=== PATIENT | male | born 1990 ===

== ENCOUNTER 2018-05-21 12:51 | Emergency (ER) | payer OTHER, SELFPAY ==
[2018-05-21 12:57] VITALS: BP 123/77; PULSE 77; RESP 14; TEMP 36.8; O2SAT 97; BMI 38.4
--- NOTE | 2018-05-21 13:48 | ED.EXTPRO ---
HPI - Extremity Problem <Nanette Carmichael PA-C - Last Filed: 05/21/18 19:41> General Chief complaint: Extremity Problem,Nontraumatic Stated complaint: RT FOOT PAIN Time Seen by Provider: 05/21/18 13:47 Source: patient Mode of arrival: ambulatory Limitations: no limitations History of Present Illness HPI Narrative: This 27-year-old male comes in due to recurrences of right great toe pain for the last several years. He states that he has had a flare up every few months. He states that he has numerous extended family members who have gout and have told him that his symptoms are the same, no immediate family members. He states that he gets pain and swelling in that toe and on that side of the foot. He gets somewhat red. It gets painful to walk on and he has to walk on the side of his foot or the heel. It is typically been limited to his great toe. He has not noted pain or swelling in other joints. He has not had any fever or other new symptoms with this and has been otherwise well. He states he has tried to get into medical when this occurs, however it always takes at least several days and the symptoms are resolving by than. He states they are always largely resolved within a week or less. He had recurrent symptoms that started again yesterday, worse pain this morning. He did take Tylenol which has helped somewhat. He has no chronic medical problems, has had no surgeries. Related Data Previous Rx's Medication Instructions Recorded naproxen 500 mg PO Q12H PRN #30 tab 05/21/18 Allergies Allergy/AdvReac Type Severity Reaction Status Date / Time No Known Drug Allergies Allergy Verified 05/21/18 12:59 Review of Systems <Nanette Carmichael PA-C - Last Filed: 05/21/18 19:41> Review of Systems ROS Unobtainable: All systems reviewed & are unremarkable except as noted in HPI and below PFSH <Nanette Carmichael PA-C - Last Filed: 05/21/18 19:41> Medical History Healthy adult male (Chronic) Social History Smoking Status: Former smoker Social History Smoking Status: Former smoker Exam <Nanette Carimchael PA-C - Last Filed: 05/21/18 19:41> Narrative Exam Narrative: GENERAL APPEARANCE: Patient sitting comfortably, in no distress. LUNGS: Clear to auscultation bilaterally. HEART: Rate and rhythm regular without murmur, normal S1 and S2, no S3 or S4. DERMATOLOGIC: Right great toe to 1st metatarsal base there is mild erythema with warmth to touch, no skin breaks or wounds visible MUSCULOSKELETAL: right great toe mild effusion, tender to touch at the joint, no tenderness over the other toes or metatarsals. No tenderness over the ankle. Full range of motion. No left foot effusion NEUROVASCULAR: Right foot is warm and pink, +pedal pulses, sensation grossly intact Initial Vital Signs Initial Vital Signs: Vital Signs Temperature 98.2 F 05/21/18 12:57 Pulse Rate 77 05/21/18 12:57 Respiratory Rate 14 05/21/18 12:57 Blood Pressure 123/77 05/21/18 12:57 Pulse Oximetry 97 05/21/18 12:57 <Adele Sterling DO - Last Filed: 05/23/18 07:26> Initial Vital Signs Initial Vital Signs: Vital Signs Temperature 98.2 F 05/21/18 12:57 Pulse Rate 77 05/21/18 12:57 Respiratory Rate 14 05/21/18 12:57 Blood Pressure 123/77 05/21/18 12:57 Pulse Oximetry 97 05/21/18 12:57 Course <Nanette Carmichael PA-C - Last Filed: 05/21/18 19:41> Additional Information: The recurrent symptoms are consistent with gout. I did offer patient trial of NSAIDs and outpatient follow-up. He preferred to do a little bit of workup here as he has had difficulty getting in for appointments when symptomatic. Reviewed no acute findings on studies, which certainly is also consistent with gout. Advised to continue anti-inflammatory and follow-up with PCM on this to discuss prophylactic medication since he has frequent flares. Orders Ordered: Discontinued Medications Naproxen (Naprosyn) 500 mg PO NOW ONE Stop: 05/21/18 14:38 Last Admin: 05/21/18 14:47 Dose: 500 mg Vital Signs - 8 hr 05/21/18 12:57 Temperature 98.2 F Pulse Rate 77 Respiratory Rate 14 Blood Pressure 123/77 Pulse Oximetry 97 <Adele Sterling DO - Last Filed: 05/23/18 07:26> Orders Ordered: Discontinued Medications Naproxen (Naprosyn) 500 mg PO NOW ONE Stop: 05/21/18 14:38 Last Admin: 05/21/18 14:47 Dose: 500 mg Vital Signs - 8 hr 05/21/18 12:57 Temperature 98.2 F Pulse Rate 77 Respiratory Rate 14 Blood Pressure 123/77 Pulse Oximetry 97 MDM - Extremity (Nontraumatic) <Nanette Carmichael PA-C - Last Filed: 05/21/18 19:41> Lab Data Result diagrams: 05/21/18 14:49 05/21/18 14:49 Lab Results 05/21/18 05/21/18 Range/Units 14:49 14:49 WBC 8.5 (4.5-11.0) X10^3/uL RBC 5.09 (4.5-5.9) X10^6/uL Hgb 15.8 (13.5-17.5) g/dL Hct 47.0 (41-53) % MCV 92.2 (80-100) fL MCH 31.1 (26-34) PG MCHC 33.7 (30-36) % RDW 12.8 (11.6-14.8) % Plt Count 200 (150-400) X10^3/uL Neut % (Auto) 72.9 (50-75) % Lymph % (Auto) 19.1 L (25-40) % [place] % (Auto) 6.1 (3-14) % Eos % (Auto) 1.5 L (2-4) % Baso % (Auto) 0.4 (0-2) % Neut # (Auto) 6200 (9881-2532) /uL Lymph # (Auto) 1600 (0815-7338) /uL [place] # (Auto) 500 (0-900) /uL Eos # (Auto) 100 (0-450) /uL Baso # (Auto) 0 (0-100) /uL Sodium 138 (137-145) mmol/L Potassium 4.7 (3.4-5.1) mmol/L Chloride 101 (98-107) mmol/L Carbon Dioxide 27 (22-32) mmol/L BUN 13 (9-20) mg/dL Creatinine 0.80 (0.66-1.25) mg/dL Estimated GFR > 60.0 (>60) mL/min BUN/Creatinine Ratio 16.3 (6-22) Glucose 99 (70-100) mg/dL Uric Acid 6.1 (3.5-8.5) mg/dL Calcium 9.5 (8.4-10.2) mg/dL C-Reactive Protein 0.7 (<1.0) mg/dL Imaging Data foot: Radiologist's impression: [address] [address] XRay Report Signed Patient: Kana Cm TMR#: [id number] : 1990Acct:[id number] Age/Sex: te of Service: 05/21/18 Loc: ED Accession Number: [id number] Procedure: XR foot RT min 3V Ordering Provider: Nanette Carmichael P.A-C PROCEDURE: XR FOOT RT MIN 3V INDICATIONS: RIGHT foot/great toe pain TECHNIQUE: 3 views of the foot were acquired. COMPARISON: None. FINDINGS: Bones: No fractures or dislocations. No suspicious bony lesions. Soft tissues: No tibiotalar joint effusion. Achilles tendon appears normal. IMPRESSION: No acute fracture. No osseous lesion. If symptoms and/or clinical suspicion for pathology persist, further assessment with repeat, or advanced imaging (e.g., CT, MRI, or bone scan) may be helpful for further assessment. Dictated by: Yoly Vital M.D. on 05/21/2018 at 14:49 Approved by: Yoly Vital M.D. on 05/21/2018 at 14:50 <Adele Sterling, - Last Filed: 05/23/18 07:26> Lab Data Lab Results 05/21/18 05/21/18 Range/Units 14:49 14:49 WBC 8.5 (4.5-11.0) X10^3/uL RBC 5.09 (4.5-5.9) X10^6/uL Hgb 15.8 (13.5-17.5) g/dL Hct 47.0 (41-53) % MCV 92.2 (80-100) fL MCH 31.1 (26-34) PG MCHC 33.7 (30-36) % RDW 12.8 (11.6-14.8) % Plt Count 200 (150-400) X10^3/uL Neut % (Auto) 72.9 (50-75) % Lymph % (Auto) 19.1 L (25-40) % [place] % (Auto) 6.1 (3-14) % Eos % (Auto) 1.5 L (2-4) % Baso % (Auto) 0.4 (0-2) % Neut # (Auto) 6200 (3402-9357) /uL Lymph # (Auto) 1600 (3930-9028) /uL [place] # (Auto) 500 (0-900) /uL Eos # (Auto) 100 (0-450) /uL Baso # (Auto) 0 (0-100) /uL Sodium 138 (137-145) mmol/L Potassium 4.7 (3.4-5.1) mmol/L Chloride 101 (98-107) mmol/L Carbon Dioxide 27 (22-32) mmol/L BUN 13 (9-20) mg/dL Creatinine 0.80 (0.66-1.25) mg/dL Estimated GFR > 60.0 (>60) mL/min BUN/Creatinine Ratio 16.3 (6-22) Glucose 99 (70-100) mg/dL Uric Acid 6.1 (3.5-8.5) mg/dL Calcium 9.5 (8.4-10.2) mg/dL C-Reactive Protein 0.7 (<1.0) mg/dL Discharge Plan Departure Patient Disposition: Home Clinical Impression: Gout Qualifiers: Gout site: toe Gout etiology: idiopathic Chronicity: unspecified Laterality: right Qualified Code(s): M10.071 - Idiopathic gout, right ankle and foot Discharge Date/Time: 05/21/18 16:00 Interventions: ED Discharge Assessment Last Done: 05/21/18 15:59 Instructions: DI for Gout Activity Restrictions/Additional Instructions: Please return if you have acutely worsening symptoms again. Otherwise, please continue the naproxen to help with pain and inflammation twice daily. You can add Tylenol in addition if needed for pain. Please follow up with medical next week to review your history and frequency of attacks with them and talk about getting on some medicine to prevent attacks. Your x-rays and lab studies did not show any acute problem today, but based on your history and exam findings your recurrent pain is most likely due to gout. Prescriptions: New naproxen 500 mg tablet 500 mg PO Q12H PRN (Reason: pain/gout attack) Qty: 30 RF: 0 Referrals: [facility] [Provider Group] <Adele Sterling DO - Last Filed: 05/23/18 07:26> Cosign ED Attending Cosignature Attestation: I was immediately available in the department for consultation. This documentation has been reviewed and I agree with assessment and plan. Supervised by Adele Sterling DO
--- NOTE | 2018-05-21 14:17 | PC.NURSE ---
Patient reports 10/10 pain of right toe woke this morning took tylenol for pain has had significant relief. No personal dx of Gout but has family members that have had it.
--- NOTE | 2018-05-21 14:37 | DI.RAD.S_ITS ---
PROCEDURE: XR FOOT RT MIN 3V INDICATIONS: RIGHT foot/great toe pain TECHNIQUE: 3 views of the foot were acquired. COMPARISON: None. FINDINGS: Bones: No fractures or dislocations. No suspicious bony lesions. Soft tissues: No tibiotalar joint effusion. Achilles tendon appears normal. IMPRESSION: No acute fracture. No osseous lesion. If symptoms and/or clinical suspicion for pathology persist, further assessment with repeat, or advanced imaging (e.g., CT, MRI, or bone scan) may be helpful for further assessment. Dictated by: Yoly Vital M.D. on 05/21/2018 at 14:49 Approved by: Yoly Vital M.D. on 05/21/2018 at 14:50
[2018-05-21] MEDS: NAPROXEN 250 MG TABLET 500 MG PO (14:47)
[2018-05-21 15:05] LABS: Add Manual Diff / Slide Review NO; Basophils Absolute Auto 0 /uL (0-100); Basophils Percent Auto 0.4 % (0-2); Eosinophils Absolute Auto 100 /uL (0-450); Eosinophils Percent Auto 1.5 % (2-4); Hemoglobin 15.8 g/dL (13.5-17.5); Lymphocytes Absolute Auto 1600 /uL (1100-4500); Lymphocytes Percent Auto 19.1 % (25-40); Mean Corpuscular HGB Conc 33.7 % (30-36); Mean Corpuscular Hemoglobin 31.1 PG (26-34); Mean Corpuscular Volume 92.2 fL (80-100); Monocytes Absolute Auto 500 /uL (0-900); Monocytes Percent Auto 6.1 % (3-14); Neutrophils Absolute Auto 6200 /uL (1500-7000); Neutrophils Percent Auto 72.9 % (50-75); Platelet Count 200 X10^3/uL (150-400); Red Blood Cell Count 5.09 X10^6/uL (4.5-5.9); Red Cell Distribution Width 12.8 % (11.6-14.8); White Blood Cell Count 8.5 X10^3/uL (4.5-11.0)
[2018-05-21 15:18] LABS: BUN Creatinine Ratio 16.3 (6-22); Blood Urea Nitrogen 13 mg/dL (9-20); C-Reactive Protein Quant 0.7 mg/dL (<1.0); Calcium 9.5 mg/dL (8.4-10.2); Carbon Dioxide 27 mmol/L (22-32); Chloride 101 mmol/L (98-107); Estimated Glomerular Filt Rate > 60.0 mL/min (>60); Glucose 99 mg/dL (70-100); HEMOLYSIS < 15 (0-50); Potassium 4.7 mmol/L (3.4-5.1); Sodium 138 mmol/L (137-145); Uric Acid 6.1 mg/dL (3.5-8.5)
== END 2018-05-21 16:00 | disposition home or self-care (01) ==
PROVIDERS: Emergency Provider Internal Medicine
DX: M10.071 Idiopathic gout, right ankle and foot (principal)
CPT/HCPCS: 36415; 73630; 80048; 84550; 85025; 86140; 99282; 99284